=== PATIENT | male | born 1980 | race Caucasian/White ===

== ENCOUNTER → 2017-07-07 09:39 | Outpatient (CLI) | payer OTHER, SELFPAY ==
--- NOTE | 2017-07-07 09:42 | RAD_ITS ---
STUDY: X-RAY - THORACIC SPINE REASON FOR EXAM: Male, 36 years old. Back pain. No history of trauma. TECHNIQUE: 3 view(s) of the thoracic spine were obtained. COMPARISON: None. FINDINGS: Normal kyphosis of the thoracic spine. There is no substantial scoliosis. Normal thoracic vertebrae and endplates. Normal disc space heights. The soft tissue structures are unremarkable. RAD/Thoracic Spine 3 Views IMPRESSION: Normal x-ray examination of the thoracic spine. Electronically Signed: Davin Romero MD at 8:16 EST Tel [phone], Service support ,
== END ==
PROVIDERS: Family Provider Internal Medicine; PCP Internal Medicine; Visit Provider Internal Medicine
DX: M54.6 Pain in thoracic spine (principal)
CPT/HCPCS: 72072

== ENCOUNTER → 2017-07-16 10:14 | Outpatient (CLI) | payer OTHER, SELFPAY ==
--- NOTE | 2017-07-16 10:18 | MRI_ITS ---
STUDY: MRI THORACIC SPINE WITHOUT CONTRAST REASON FOR EXAM: Male, 36 years old. Back pain with no known injury. TECHNIQUE: Standardized fat and water weighted pulse sequences were obtained in the sagittal and axial planes. COMPARISON: None. FINDINGS: Normal kyphosis of the thoracic spine. There is no substantial scoliosis. T5-6: There is disc desiccation, moderate loss of the disc height with anterior endplate spondylosis. Normal central canal and intervertebral neural foramina. T6-7: There is disc desiccation with minimal anterior endplate spondylosis. Normal central canal and intervertebral neural foramina. There is a Schmorl's node deformity superior endplate of the T7 vertebra. T7-8: There is disc desiccation, mild loss of the disc height with a small Schmorl's node deformity of the inferior endplate of T7 vertebra. There is a small posterior right central disc protrusion (axial T2 series 8, image 25), measuring 2 x 7.5 mm (AP x transverse), producing minimal ventral thecal sac flattening. Normal central canal and intervertebral neural foramina. T8-9: There is disc desiccation, minimal anterior endplate spondylosis, shallow juxta-endplate Schmorl's node deformities with a posterior right central disc osteophyte complex (sagittal T2 series 5, image 9; axial T2 series 8, image 22). The disc osteophyte complex measures approximately 3 x 8 mm (AP x transverse), and is producing rightward ventral thecal sac flattening but without thoracic cord impingement. CSF remains present surrounding thoracic cord with a normal central canal and patent intervertebral neural foramina. T1-2, T2-3, T3-4, T4-5, T9-10, T10-11, T11-12: Normal endplates. Normal disc hydration, heights and morphology of the corresponding intervertebral discs. Normal central canal and intervertebral neural foramina at the corresponding levels. Normal visualized thoracic cord. Normal conus medullaris that terminates at the mid L1 vertebral body level.. There is 8 mm hyperintense spherical structure in the posterior right upper lobe of the lung (axial series 8, image 36) which may represent a pulsation artifact arising from the CSF within the central canal, however this hyperintense lesion is slightly smaller and appears to have an irregular edge and a true pulmonary nodule cannot be excluded. A CT scan of the chest may be of benefit for further assessment. MRI/Spine Thoracic (Routine) IMPRESSION: 1. Possible pulmonary nodule within the right upper lung. CT imaging is recommended for further assessment. 2. T5-6 and T6-7 degenerative disc disease with endplate spondylosis. 3. T7-8 small posterior right central disc protrusion. 4. T8-9 posterior right central disc osteophyte complex producing thecal sac flattening. N.B. : The above information has been verbally conveyed by Rashawn Nicole DO to , Covering Physician, on 07/16/2017 14:55:42 (ET). Electronically Signed: Rashawn Nicole DO at 13:34 EST Tel , Service support , N.B. : The above information has been verbally conveyed by DO genna Branham , Covering Physician, on 07/16/2017 14:55:42 (ET).
== END ==
PROVIDERS: Family Provider Internal Medicine; PCP Internal Medicine; Visit Provider Internal Medicine
DX: M54.6 Pain in thoracic spine (principal)
CPT/HCPCS: 72146

== ENCOUNTER → 2017-07-23 09:20 | Outpatient (CLI) | payer OTHER, SELFPAY ==
--- NOTE | 2017-07-23 09:33 | RAD_ITS ---
STUDY: X-RAY CHEST REASON FOR EXAM: Male, 36 years old. History of pulmonary nodule. TECHNIQUE: PA and lateral views of the chest. COMPARISON: Comparison is made with prior study March 08, 2015. FINDINGS: The lungs are clear and expanded. Scattered calcified granulomas. There is no demonstrated pleural abnormality. Normal size heart. Normal mediastinum and zi. Normal visualized pulmonary arteries. Normal visualized aortic arch and descending thoracic aorta. Normal visualized thoracic spine. Normal visualized ribs, clavicles, and shoulders. There is no demonstrated abnormality of the visualized soft tissue structures of the upper abdomen. RAD/Chest PA and Lateral IMPRESSION: Normal x-ray examination of the chest. Electronically Signed: Davin Rmoero MD at 13:25 EST Tel [phone], Service support ,
== END ==
PROVIDERS: Family Provider Internal Medicine; PCP Internal Medicine; Visit Provider Internal Medicine
DX: Z87.09 Personal history of other diseases of the respiratory system (principal)
CPT/HCPCS: 71046

== ENCOUNTER → 2017-08-06 15:42 | Outpatient (CLI) | payer OTHER, SELFPAY ==
--- NOTE | 2017-08-06 15:43 | CT_ITS ---
STUDY: CT CHEST WITH CONTRAST REASON FOR EXAM: Male, 36 years old. Right rib pain, nausea RADIATION DOSAGE (If Supplied By Facility): CTDIvol = ( 10.50 ) mGy, DLP = ( 421.31 ) mGycm TECHNIQUE: Transaxial imaging was performed following intravenous administration of 100 ml of Isovue 300 contrast material. Individualized dose optimization techniques were used for this CT. COMPARISON: None. FINDINGS: The lungs are normal. There is no demonstrated pleural abnormality. Normal heart and pericardium. Normal mediastinum. Normal hilar regions. Normal enhanced pulmonary arteries. Normal aorta arch and descending thoracic aorta. Normal osseous structures. Nonspecific 3 mm subcutaneous nodule is noted of the right anterolateral chest wall, image 81. There is no demonstrated abnormality of the visualized upper abdomen. CT/Chest WITH Contrast IMPRESSION: Nonspecific subcutaneous 3 mm nodule of the right anterolateral chest wall. Electronically Signed: Ayan Contreras DO at 9:12 EDT Tel [phone], Service support ,
== END ==
PROVIDERS: Family Provider Internal Medicine; PCP Internal Medicine; Visit Provider Internal Medicine
DX: R91.1 Solitary pulmonary nodule (principal)
CPT/HCPCS: 71260; Q9967

== ENCOUNTER → 2018-02-17 16:15 | Outpatient (CLI) | payer OTHER, SELFPAY | PROVIDERS: Referring Provider Otolaryngology Otolaryngology/Facial Plastic Surgery; Visit Provider Otolaryngology Otolaryngology/Facial Plastic Surgery | DX: J32.9 Chronic sinusitis, unspecified (principal) | CPT/HCPCS: 87070; 87077; 87186; 87205 ==

== ENCOUNTER → 2018-11-16 | Outpatient (CLI) | payer OTHER, SELFPAY ==
[2018-11-16 16:26] LABS: CPK Total, Creatine Kinase 91 U/L (39-308); CRP < 2.90 mg/L (0.0-3.0)
== END | disposition home or self-care (01) ==
LOC: MTLAB 15:28
PROVIDERS: Family Provider Internal Medicine; PCP Internal Medicine; Referring Provider Nurse Practitioner; Visit Provider Nurse Practitioner
DX: R07.89 Other chest pain (principal)
CPT/HCPCS: 36415; 82550; 84484; 86140

== ENCOUNTER → 2018-12-24 08:54 | Outpatient (CLI) | payer OTHER, SELFPAY | PROVIDERS: Family Provider Internal Medicine; PCP Internal Medicine; Referring Provider Otolaryngology Otolaryngology/Facial Plastic Surgery; Visit Provider Otolaryngology Otolaryngology/Facial Plastic Surgery | DX: J32.9 Chronic sinusitis, unspecified (principal) | CPT/HCPCS: 87070; 87077; 87186; 87205 ==

== ENCOUNTER → 2019-03-31 | Outpatient (CLI) | payer OTHER, SELFPAY ==
--- NOTE | 2019-03-31 09:11 | RAD_ITS ---
STUDY: X-RAY - LEFT FOOT CLINICAL: Male, 38 years old. Pain involving the great toe following a recent injury. TECHNIQUE: 3 view(s) of the foot. COMPARISON: None. FINDINGS: Normal talus, calcaneus, and tarsal bones. Normal visualized subtalar, talonavicular, calcaneocuboid, tarsal and tarsometatarsal articulations. Normal metatarsi. There is degenerative arthrosis of the metatarsophalangeal joint of the hallux . Normal tibial and fibular sesamoid bones. Normal interphalangeal joint of the great toe. Nondisplaced fracture at the base of the distal phalanx of the great toe. Normal second through fifth metatarsophalangeal joints. Normal interphalangeal joints and phalanges of the lesser toes. There is non-specific soft tissue swelling of the foot. RAD/Foot min 3 Views IMPRESSION: Nondisplaced fracture at the base of the distal phalanx of the great toe with overlying soft tissue swelling. Electronically Signed: Davin Romero, at 9:43 EST , Service support ,
--- NOTE | 2019-03-31 09:15 | RAD_ITS ---
STUDY: X-RAY LEFT FOOT, GREAT TOE REASON FOR EXAM: Male, 38 years old. Pain following injury. TECHNIQUE: 3 view(s) of the toe were obtained. COMPARISON: None. FINDINGS: Normal visualized metatarsus. Normal metatarsophalangeal (M.T.P) joint. Normal interphalangeal joints. Nondisplaced fracture at the base of the distal phalanx of the great toe. There is diffuse soft tissue swelling of the toe. RAD/Toe(s) Min 2 Views IMPRESSION: Nondisplaced fracture at the base of the distal phalanx of the great toe. Electronically Signed: Davin Romero, at 9:45 EST , Service support ,
== END | disposition home or self-care (01) ==
LOC: HPRAD 08:59
PROVIDERS: Family Provider Internal Medicine; PCP Internal Medicine; Referring Provider Internal Medicine; Visit Provider Internal Medicine
DX: M79.675 Pain in left toe(s) (principal)
CPT/HCPCS: 73630; 73660